=== PATIENT | female | born 1975 | race American Indian/Alaskan Native ===

== ENCOUNTER 2017-10-18 11:18 | Emergency (ER) | payer MEDICAID ==
[2017-10-18 11:28] VITALS: BP 121/84
--- NOTE | 2017-10-18 15:45 | Emergency Department Report ---
ED ENT HPI - General Chief complaint: Sore Throat Stated complaint: SORE THROAT/FEVER Time Seen by Provider: 10/18/17 15:33 Source: patient Mode of arrival: Ambulatory Limitations: No Limitations - History of Present Illness MD complaint: sore throat -: days(s) (3 days) Severity: mild Severity scale (0 -10): 3 Worsens with: none - Related Data Allergies Allergy/AdvReac Type Severity Reaction Status Date / Time No Known Allergies Allergy Unverified 10/18/17 11:27 ED Dental HPI - General Chief complaint: Sore Throat Stated complaint: SORE THROAT/FEVER Time Seen by Provider: 10/18/17 15:33 Source: patient Mode of arrival: Ambulatory Limitations: No Limitations - Related Data Allergies Allergy/AdvReac Type Severity Reaction Status Date / Time No Known Allergies Allergy Unverified 10/18/17 11:27 ED Review of Systems ROS: Stated complaint: SORE THROAT/FEVER Other details as noted in HPI Comment: All other systems reviewed and negative ENT: throat pain Respiratory: cough. denies: shortness of breath, SOB with exertion Cardiovascular: denies: chest pain, palpitations Gastrointestinal: denies: abdominal pain, nausea, vomiting ED Past Medical Hx - Past Medical History Previous Medical History?: No - Surgical History Past Surgical History?: No - Social History Smoking Status: Never Smoker Substance Use Type: None ED Physical Exam - General Limitations: No Limitations General appearance: alert, in no apparent distress - Head Head exam: Present: atraumatic, normocephalic - ENT ENT exam: Present: mucous membranes moist, other (mild pharyngeal erythema) - Neck Neck exam: Present: normal inspection, full ROM. Absent: tenderness, meningismus, lymphadenopathy - Respiratory Respiratory exam: Present: normal lung sounds bilaterally. Absent: respiratory distress, wheezes, rales, chest wall tenderness - Cardiovascular Cardiovascular Exam: Present: regular rate, normal rhythm, normal heart sounds - GI/Abdominal GI/Abdominal exam: Present: soft, normal bowel sounds. Absent: distended, tenderness, guarding, rebound, rigid, organomegaly, mass, bruit, pulsatile mass - Extremities Exam Extremities exam: Present: normal inspection, full ROM, normal capillary refill - Back Exam Back exam: Absent: CVA tenderness (R), CVA tenderness (L) - Neurological Exam Neurological exam: Present: alert, oriented X3, CN II-XII intact, normal gait - Skin Skin exam: Present: warm, intact, normal color ED Course Vital Signs 10/18/17 11:24 Temperature 98.1 F Pulse Rate 77 Respiratory 16 Rate Blood Pressure 121/84 O2 Sat by Pulse 97 Oximetry Critical care attestation.: If time is entered above; I have spent that time in minutes in the direct care of this critically ill patient, excluding procedure time. ED Disposition Clinical Impression: Pharyngitis Disposition: DC-01 TO HOME OR SELFCARE Is pt being admited?: No Condition: Stable Instructions: Pharyngitis (ED) Referrals: CORTNEY ESPINOZA MD [Primary Care Provider] - 3-5 Days
== END 2017-10-18 17:11 | disposition home or self-care (01) ==
LOC: ED 11:18
DX: J02.9 Acute pharyngitis, unspecified (principal)
CPT/HCPCS: 87430; 99283

== ENCOUNTER 2020-07-13 02:54 | Emergency (ER) | payer SELFPAY ==
[2020-07-13 06:01] LABS: Basophils % (Auto) 0.3 % (0.0-1.8); Eosinophils % (Auto) 0.1 % (0.0-4.3); Hematocrit 37.2 % (30.3-42.9); Hemoglobin 12.3 gm/dl (10.1-14.3); Lymphocytes # (Auto) 1.6 K/mm3 (1.2-5.4); Lymphocytes % (Auto) 23.9 % (13.4-35.0); Mean Corpuscular HGB Conc 33 % (30-34); Mean Corpuscular Volume 86 fl (79-97); Monocytes # (Auto) 0.6 K/mm3 (0.0-0.8); Monocytes % (Auto) 9.3 % (0.0-7.3); Platelet Count 288 K/mm3 (140-440); Red Blood Count 4.33 M/mm3 (3.65-5.03); Red Cell Distribution Width 15.2 % (13.2-15.2)
[2020-07-13 06:13] LABS: Alanine Aminotransferase 20 units/L (7-56); Albumin 4.3 g/dL (3.9-5); BUN/Creatinine Ratio 14; Blood Urea Nitrogen 11 mg/dL (7-17); Calcium 9.7 mg/dL (8.4-10.2); Hemolysis Index 0
[2020-07-13 09:29] LABS: Bacteria,Urine 1+ /HPF (Negative); Bilirubin,Urine NEG (Negative); Blood,Urine NEG (Negative); Color,Urine Amber (Yellow); Mucus,Urine 3+ /HPF; Urobilinogen,Urine < 2.0 mg/dL (<2.0)
[2020-07-13] MEDS ORDERED: traMADol 50 MG TAB PO ONE (10:21)
--- NOTE | 2020-07-13 10:28 | Emergency Department Report ---
ED Abdominal Pain HPI - General Chief Complaint: Abdominal Pain Stated Complaint: STOMACH PAIN Time Seen by Provider: 07/13/20 10:20 Source: patient Mode of arrival: Ambulatory Limitations: No Limitations - History of Present Illness Initial Comments: 45-year-old female complaining of mid upper abdominal pain x3 weeks. Doing the last 3 days the pain has intensified and she now vomits every time she attempts to eat. She denies any fever chills no diarrhea her last bowel movement was on . Patient denies any urinary symptoms she denies chest pain or shortness of breath cough or fever. She has an IUD in place and her last menstrual period was 3 weeks ago. MD Complaint: abdominal pain Radiation: RUQ Severity scale (0 -10): 10 Quality: aching, fullness Improves With: nothing Worsens With: eating Associated Symptoms: nausea, vomiting. denies: chills, constipation, dysuria, hematemesis, hematochezia - Related Data Previous Rx's Medication Instructions Recorded Last Taken Type HYDROcodone/APAP 5-325 [[place] 1 each PO Q4HR PRN #20 tablet 07/13/20 Unknown Rx 5/325] Allergies Allergy/AdvReac Type Severity Reaction Status Date / Time No Known Allergies Allergy Unverified 10/18/17 11:27 ED Review of Systems ROS: Stated complaint: STOMACH PAIN Other details as noted in HPI Comment: All other systems reviewed and negative Constitutional: no symptoms reported. denies: chills, fever, malaise Respiratory: no symptoms reported. denies: cough, SOB at rest Cardiovascular: denies: chest pain, palpitations, dyspnea on exertion, edema, syncope Gastrointestinal: abdominal pain, nausea, vomiting. denies: diarrhea, constipation, hematemesis Genitourinary: denies: urgency, dysuria, hematuria, discharge Musculoskeletal: denies: back pain Neurological: denies: headache Hematological/Lymphatic: denies: easy bleeding, easy bruising ED Past Medical Hx - Past Medical History Previous Medical History?: No - Surgical History Past Surgical History?: No - Social History Smoking Status: Never Smoker Substance Use Type: None - Medications Home Medications: Home Medications Medication Instructions Recorded Confirmed Last Taken Type HYDROcodone/APAP 5-325 [[place] 1 each PO Q4HR PRN #20 tablet 07/13/20 Unknown Rx 5/325] ED Physical Exam - General Limitations: No Limitations General appearance: alert, in no apparent distress - Head Head exam: Present: atraumatic - Eye Eye exam: Present: normal appearance - ENT ENT exam: Present: normal exam - Neck Neck exam: Present: normal inspection - Respiratory Respiratory exam: Present: normal lung sounds bilaterally. Absent: respiratory distress - Cardiovascular Cardiovascular Exam: Present: regular rate, normal heart sounds - GI/Abdominal GI/Abdominal exam: Present: soft, tenderness (Epigastric and RUQ), normal bowel sounds. Absent: distended - Rectal Rectal exam: Present: deferred - Extremities Exam Extremities exam: Present: normal inspection - Back Exam Back exam: Present: normal inspection. Absent: CVA tenderness (R), CVA tenderness (L) - Neurological Exam Neurological exam: Present: alert, altered - Psychiatric Psychiatric exam: Present: normal affect - Skin Skin exam: Present: warm, dry, intact ED Course Vital Signs 07/13/20 07/13/20 07/13/20 04:35 10:27 10:28 Temperature 99.2 F Pulse Rate 56 L 60 Respiratory 20 18 18 Rate Blood Pressure 146/87 Blood Pressure 174/98 [Right] O2 Sat by Pulse 98 99 Oximetry 07/13/20 11:27 Temperature Pulse Rate Respiratory 16 Rate Blood Pressure Blood Pressure [Right] O2 Sat by Pulse Oximetry - Reevaluation(s) Reevaluation #1: 07/13/20 12:28 I discussed all findings with Dr. Steel ER attending. I spoke with surgeon Dr. Parks and discussed all findings. Dr. Parks is okay with patient being discharged home with Lortab for pain control he has patient's phone number and his office will follow up with her on Wednesday to set an appointment. At this time patient states her pain is controlled enough to go home and she will take pain medication and also she understands that if she her pain becomes out of control her symptoms worsens she can return to the emergency room Reevaluation #2: 07/13/20 12:40 Patient's pain has lessened and she is comfortable with going home with the plan of oral pain medication at home and follow-up with Dr. Parks office on Wednesday ED Medical Decision Making - Lab Data Result diagrams: 07/13/20 04:59 07/13/20 04:59 - Radiology Data Radiology results: report reviewed Gallbladder US IMPRESSION: 1. There are sludge and small stones in the neck of the gallbladder. Common bile duct is dilated measuring 9 mm. There is thickening of the gallbladder wall which is not specific in the setting of stones but does raise the possibility of cholecystitis. If cholecystitis is a clinical concern a nuclear medicine HIDA scan can be performed to further evaluate - Medical Decision Making Patient symptoms are now confirmed is most likely from gallbladder attack. She is in no acute distress right now I have spoken to surgeon who is comfortable with patient being discharged home with outpatient follow-up - Differential Diagnosis Gallstones ,acute cholecystitis Critical Care Time: No Critical care attestation.: If time is entered above; I have spent that time in minutes in the direct care of this critically ill patient, excluding procedure time. ED Disposition Clinical Impression: Gall bladder stones, Cholecystitis Disposition: TO HOME OR SELFCARE Is pt being admited?: No Does the pt Need Aspirin: No Condition: Stable Instructions: Abdominal Pain (ED), Cholecystitis, [id number], Gallbladder Eating Plan, Cholelithiasis Additional Instructions: Low-fat diet no meats no milk products. Follow-up with Dr. Parks. Take pain medication as prescribed. Return to the emergency room if you develop worsening abdominal pain continued vomiting nausea fever Prescriptions: HYDROcodone/APAP 5-325 [[place] 5/325] 1 each PO Q4HR PRN #20 tablet PRN Reason: Pain Referrals: GINGER PARKS MD [Staff Physician] - 3-5 Days Time of Disposition: 12:34
--- NOTE | 2020-07-13 12:00 | Ultrasound Report ---
ULTRASOUND ABDOMEN, LIMITED (RIGHT UPPER QUADRANT) INDICATION: right upper quad abd pain. COMPARISON: None available. FINDINGS: Pancreas: Visualized portion shows no significant abnormality. Liver: Normal. Gallbladder: There is echogenic material in the neck of the gallbladder which appears to represent sl udge and small stones. There is thickening of the gallbladder wall which is not specific in the setting of stones but could indicate cholecystitis. Bile ducts: Common bile duct is dilated Common Bile Duct measures 9 mm. Free fluid: None. Additional Findings: None. IMPRESSION: 1. There are sludge and small stones in the neck of the gallbladder. Common bile duct is dilated nurys uring 9 mm. There is thickening of the gallbladder wall which is not specific in the setting of stone s but does raise the possibility of cholecystitis. If cholecystitis is a clinical concern a nuclear edicine HIDA scan can be performed to further evaluate Signer Name: Ace Vernon MD Signed: 07/13/2020 11:56 AM Workstation Name: [id number]
[2020-07-13] MEDS ORDERED: MORPHINE 2 MG/1 ML INJ IV ONE (12:11)
[2020-07-13 12:54] VITALS: BP 150/84
== END 2020-07-13 12:54 | disposition home or self-care (01) ==
LOC: ED 02:54
DX: K80.20 Calculus of gallbladder without cholecystitis without obstruction (principal); Z79.899 Other long term (current) drug therapy
CPT/HCPCS: 36415; 76705; 80053; 81001; 83690; 84703; 85025